=== PATIENT | male | born 1960 | race Caucasian/White ===

== ENCOUNTER → 2017-01-14 | Outpatient (CLI) | payer OTHER ==
[~2017-01-14] MED LIST: PRLSR20 PO
[2017-01-14 10:14] LABS: HEMATOCRIT 44.6 % (42-52); MEAN CELL VOLUME 82.4 fL (80-100); MEAN CORPUSCULAR HEMOGLOBIN 28.1 pg (25-34); MEAN CORPUSCULAR HGB CONC 34.1 g/dl (32-36); MEAN PLATELET VOLUME 11.1 fL (7.4-10.4); PLATELET COUNT 233 K/uL (130-400); RED BLOOD COUNT 5.41 M/uL (4.7-6.1); WHITE BLOOD COUNT 7.34 K/uL (4.8-10.8)
[2017-01-14 10:38] LABS: ALT/SGPT 28 U/L (12-78); AST/SGOT 17 U/L (15-37); BLOOD UREA NITROGEN 23 mg/dl (7-18); BUN/CREATININE RATIO 15.2 (10-20); CALCIUM 8.1 mg/dl (8.5-10.1); CARBON DIOXIDE 28 mmol/L (21-32); CHLORIDE 106 mmol/L (98-107); GLUCOSE 92 mg/dl (70-99); POTASSIUM 3.9 mmol/L (3.5-5.1); SODIUM 140 mmol/L (136-145)
[2017-01-14 10:44] LABS: ALB/GLOB RATIO 1.1 (0.9-2); ALKALINE PHOSPHATASE 82 U/L (45-117); CHOLESTEROL 158 mg/dl (0-200); CHOLESTEROL/HDL RATIO 3.6; HDL CHOLESTEROL 44 mg/dl; LDL CHOLESTEROL CALCULATED 93 mg/dl; PROSTATE SPECIFIC ANTIGEN 0.856 ng/ml (0.000-4.000); TRIGLYCERIDES 104 mg/dl (0-150); VERY LOW DENSITY LIPOPROT CALC 21 mg/dl
[2017-01-14 11:19] LABS: ESTIMATED AVERAGE GLUCOSE 114 mg/dl; HA1C FLAG Normal (Normal)
== END | disposition home or self-care (01) ==
LOC: C.LAB 09:17
PROVIDERS: ATTEND Physician Assistant Medical
DX: R35.1 Nocturia (principal); R53.83 Other fatigue; R79.9 Abnormal finding of blood chemistry, unspecified; Z11.59 Encounter for screening for other viral diseases

== ENCOUNTER → 2017-03-17 | Outpatient (CLI) | payer OTHER ==
[2017-03-17 13:13] LABS: URINE APPEARANCE CLEAR (CLEAR); URINE BILIRUBIN NEG (NEG); URINE COLOR YELLOW; URINE EPITHELIAL CELL AUTO 0-5 /lpf (0-5); URINE NITRITE NEG (NEG); URINE PH 5.5 (4.5-7.5); URINE SPECIFIC GRAVITY 1.025 (1.000-1.030); UROBILINOGEN NEG (NEG)
[2017-03-17 13:23] LABS: MANUAL MICROSCOPIC REQUIRED? NO; REVIEW REQ? NO
== END | disposition home or self-care (01) ==
LOC: C.LAB1850 10:47
PROVIDERS: ATTEND Internal Medicine Nephrology
DX: N28.1 Cyst of kidney, acquired (principal)

== ENCOUNTER → 2017-08-25 | Outpatient (CLI) | payer OTHER ==
[2017-08-25 10:14] LABS: BLOOD UREA NITROGEN 18 mg/dl (7-18); CALCIUM 8.5 mg/dl (8.5-10.1); CARBON DIOXIDE 28 mmol/L (21-32); CREATININE 1.35 mg/dl (0.60-1.40); GLUCOSE 101 mg/dl (70-99); POTASSIUM 4.2 mmol/L (3.5-5.1); SODIUM 138 mmol/L (136-145)
== END | disposition home or self-care (01) ==
LOC: C.LAB 08:46
PROVIDERS: ATTEND Internal Medicine Geriatric Medicine
DX: N18.3 Chronic kidney disease, stage 3 (moderate) (principal)

== ENCOUNTER 2019-02-28 00:06 | Inpatient (IN) ==
--- NOTE | 2019-02-28 00:34 | Emergency Department Note ---
Entered by Marycarmen Narvaez acting as a scribe for Deshawn Prado MD History of Present Illness General Chief complaint: Cardiac Assessment Stated complaint: UPPER BACK BETWEEN SHOULDERS W/ SOME CHEST PAINS Time Seen by Provider: 02/28/19 00:18 Source: patient History of Present Illness Provider complaint: chest pain Onset (ago): hour(s) 10 Location: chest Radiation: back Pain Consistency: + now resolved Maximum Pain Intensity: 4 Associated symptoms: no nausea/vomiting and no shortness of breath Treatments prior to arrival: aspirin The patient is a 58 year old male who presents to the Emergency Room with complaints of chest pain that started at 1400 today. The patient reports that he was washing his car outside and when he went back inside he started to develop chest pain. He reports that he felt like pressure. He notes that the pain radiated to his back. He states that his chest pressure lasted 1.5 hours and his back pain is still present. He notes that he took 3 baby Aspirin slept for an h our and felt better. He denies any shortness of breath, nausea, or vomiting. He denies any past medical history. He mentions that his father has a history of cardiac blockage at the age of 52. He denies any tobacco use, alcohol use, or drug use. The patient mentions that he did a stress test 6 months ago. Home Medications Home Medications Medication Instructions Recorded Confirmed Type Prilosec OTC 20 mg PO BID 08/05/18 02/28/19 History cholecalciferol (vitamin D3) 2,000 unit PO QAM 08/05/18 02/28/19 History [Vitamin D3] Allergies Allergy/AdvReac Type Severity Reaction Status Date / Time No Known Allergies Allergy Mild Verified 02/28/19 00:56 Past Med/Surg History Medical History Barretts esophagus GERD (gastroesophageal reflux disease) Surgical History History of colonoscopy History of esophagogastroduodenoscopy (EGD) History of tonsillectomy History of tooth extraction Family History Father Family history of diabetes mellitus Social History Preferred Language: Greenlandic Communication Ability: Effective 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 and A total of 10 systems reviewed and were otherwise negative Physical Exam Vital Signs Vital Signs - 24 hr 02/28/19 00:12 02/28/19 00:20 02/28/19 00:43 Temperature 36.8 C Temperature Source Oral Sepsis Recent Fever Within 48 Hours No Sepsis Action Taken by Nursing No Action Required Pulse Rate 100 H 88 Pulse Rate from SpO2 Sensor 88 Pulse Rhythm Regular Pulse Strength Normal Respiratory Rate 20 13 Respiratory Effort / Characteristics Non-Labored Spontaneous Respiratory Depth Normal Respiratory Pattern Regular Blood Pressure 163/102 H 141/101 H Blood Pressure Mean 122 114 Blood Pressure Position Sitting Pulse Oximetry 95 95 95 Oxygen Delivery Method Room Air Room Air Room Air 02/28/19 01:00 02/28/19 01:30 02/28/19 01:59 Temperature Temperature Source Sepsis Recent Fever Within 48 Hours Sepsis Action Taken by Nursing Pulse Rate 87 93 H 89 Pulse Rate from SpO2 Sensor 81 82 90 Pulse Rhythm Pulse Strength Respiratory Rate 12 11 L 17 Respiratory Effort / Characteristics Respiratory Depth Respiratory Pattern Blood Pressure 150/98 H 160/90 H 142/88 H Blood Pressure Mean 115 113 106 Blood Pressure Position Pulse Oximetry 95 97 96 Oxygen Delivery Method Room Air Room Air Room Air 02/28/19 02:00 Temperature Temperature Source Sepsis Recent Fever Within 48 Hours Sepsis Action Taken by Nursing Pulse Rate 87 Pulse Rate from SpO2 Sensor 86 Pulse Rhythm Pulse Strength Respiratory Rate 16 Respiratory Effort / Characteristics Respiratory Depth Respiratory Pattern Blood Pressure 136/87 Blood Pressure Mean 103 Blood Pressure Position Pulse Oximetry 97 Oxygen Delivery Method Room Air General: Non-ill appearing middle-age male in no acute distress. HEENT: Normal cephalic atraumatic. Pupils are equal round and reactive to light. Extraocular movements are intact. Oropharynx is pink with moist mucous membranes. No swelling of the mouth lips or tongue. Neck: Supple with a midline trachea. No meningeal signs or stiffness, no JVD or bruits. No Stridor. Chest: Clear to auscultation bilaterally. No wheezes or rhonchi. No increased work of breathing. Heart: regular rate and rhythm. Abdomen: Soft nontender, nondistended without rebound guarding or rigidity. Extremities: No cyanosis clubbing or edema. No calf tenderness or asymmetry Spine/Back. Non tender to palpation. No CVA tenderness Skin: Good turgor without rashes. Neurologic exam: Cranial nerves two through 12 are intact. Motor and sensation are intact and symmetrical throughout. Course 0019: The patient was evaluated in room A11B, and a complete history and physical examination were performed. 0105: I reevaluated the patient and he is resting comfortable. 0043: I reevaluated the patient and updated him on his results, he reports that he has no chest pain and mild back pain. He denies any medication of his back pain. I ordered a chest CT scan and repeat EKG. He agreed to try nitroglycerine. 0157: I reevaluated the patient and his back pain has decreased with Ni troglycerine. 0208: I discussed the patient's case with Dr. Orona [facility] Cardiac Intervention, he recommends that the patient be admitted. 0222: I reevaluated the patient and updated, he is resting comfortably. 0227: I reviewed the patient's case with Dr. Romero- [facility] Hospitalist. He will evaluate the patient for further management. Administered Medications Heparin Sodium/Dextrose (Heparin Sodium/Dextrose) 25,000 units in 500 mls @ 0.02 mls/hr IV .Q24H [facility]; Protocol Stop: 03/30/19 02:29 Last Admin: 02/28/19 02:38 Dose: 1,500 units/hr, 30 mls/hr Documented by: [id number] Cosigned by: [id number] Ioversol (Optiray 320 125ml) 119 ml IV ONCE PRN PRN Reason: Interaction Checking Stop: 03/04/19 01:51 Last Admin: 02/28/19 01:52 Dose: 119 ml Documented by: [id number] Discontinued Medications Heparin Sodium (Porcine) (Heparin Sodium (Porcine)) Confirm Administered Dose 5,000 units .ROUTE .STK-MED ONE Stop: 02/28/19 02:38 Last Admin: 02/28/19 02:38 Dose: 5,000 units Documented by: [id number] Cosigned by: [id number] Heparin Sodium/Dextrose () 1 ea IV NOW STA; Protocol Stop: 02/28/19 02:29 Last Admin: 02/28/19 02:40 Dose: Not Given Documented by: [id number] Nitroglycerin (Nitrostat) 0.4 mg SL NOW STA Stop: 02/28/19 01:36 Last Admin: 02/28/19 01:40 Dose: 0.4 mg Documented by: [id number] Nitroglycerin (Nitrostat) Confirm Administered Dose 0.4 mg .ROUTE .STK-MED ONE Stop: 02/28/19 01:40 Last Admin: 02/28/19 01:40 Dose: Not Given Documented by: [id number] Nitroglycerin (Nitro-Bid 2%) 1 inch EXT NOW ONE Stop: 02/28/19 02:11 Last Admin: 02/28/19 02:16 Dose: 1 inch Documented by: [id number] Medical Decision Making Differential Diagnosis Differential diagnoses include but are not limited to acute coronary syndrome, CHF, PE, pneumothorax, aneurysm, electrolyte abnormality, and metabolic abnormality. Medical Records Attestation: I reviewed the patient's medical records. Home Medications Current Medication List: was personally reviewed by me Laboratory Data Attestation: I reviewed the patient's lab results. Result diagrams: 02/28/19 00:32 02/28/19 00:32 Lab Results 02/28/19 02/28/19 Range/Units 00:32 00:32 WBC 12.90 H (4.8-10.8) K/uL RBC 5.30 (4.7-6.1) M/uL Hgb 15.4 (14.0-18.0) g/dL Hct 43.8 (42-52) % MCV 82.6 (80-100) fL MCH 29.1 (25-34) pg MCHC 35.2 (32-36) g/dL RDW Std Deviation 38.0 (36.4-46.3) fL RDW Coeff of [place] 12.6 (11.5-14.5) % Plt Count 269 (130-400) K/uL MPV 10.8 H (7.4-10.4) fL Immature Gran % (Auto) 0.2 % Neut % (Auto) 76.5 % Lymph % (Auto) 14.0 % [place] % (Auto) 8.9 % Eos % (Auto) 0.2 % Baso % (Auto) 0.2 % Immature Gran # (Auto) 0.03 H (0.00-0.02) K/uL Neut # (Auto) 9.88 H (1.4-6.5) K/uL Lymph # (Auto) 1.80 (1.2-3.4) K/uL [place] # (Auto) 1.15 H (0.11-0.59) K/uL Eos # (Auto) 0.02 (0-0.5) K/uL Baso # (Auto) 0.02 (0-0.2) K/uL Sodium 139 (136-145) mmol/L Potassium 3.6 (3.5-5.1) mmol/L Chloride 105 (98-107) mmol/L Carbon Dioxide 25 (21-32) mmol/L Anion Gap 9.0 (3-11) BUN 21 H (7-18) mg/dl Creatinine 1.35 (0.6-1.4) mg/dl Est Cr Clr Drug Dosing 71.9 ml/min Est GFR ( Amer) 67.1 Est GFR (Non-Af Amer) 57.9 BUN/Creatinine Ratio 15.9 (10-20) Glucose 121 H (70-99) mg/dl Calcium 8.5 (8.5-10.1) mg/dl Total Bilirubin 0.5 (0.2-1) mg/dl AST 73 H (15-37) U/L ALT 35 (12-78) U/L Alkaline Phosphatase 78 (45-117) U/L Troponin I 20.400 H* (0-0.045) ng/ml Total Protein 6.9 (6.4-8.2) gm/dl Albumin 3.6 (3.4-5.0) gm/dl Globulin 3.3 (2.5-4.0) gm/dl Albumin/Globulin Ratio 1.1 (0.9-2) Lipase 58 L (73-393) U/L Imaging Data Attestation: I personally reviewed and interpreted this imaging study as follows: My Impression: XR Chest No acute infiltrate or pneumothoraces. Radiologist's Impression: CTA CHEST: The thoracic aorta is normal in caliber without significant aneurysm or dissection. No periaortic abnormality identified. The aortic wall is unremarkable on precontrast imaging. No evidence for pulmonary embolism. The cardiac chambers are normal in size. No pericardial effusion. No significant mediastinal adenopathy. No acute osseous or significant overlying soft tissue abnormality identified. Radiologist: Jere Lind MD Study ready at 0211 and initial results transmitted at 0222. ECG Data Attestation: I personally reviewed and interpreted this ECG as follows: Indication: + chest pain Rate (beats per minute): 80 Rhythm: + normal sinus (with SA) ECG Findings: + Other (low voltage, no ischemic changes) Comparison ECG Date: no prior available Additional Comments: EKG 2 Normal sinus rhythm, rate of 89 bpm, no ischemic changes, no ectopy, no changes from EKG 1. Blood Pressure Blood Pressure Findings: Elevated blood pressure Blood Pressure Disposition: further management by hospitalist [facility] Narrative This patient comes in as described above. He had an episode of chest and back pain that occurred shortly after 2:00 today. It last about an hour and a half he still has some mild back discomfort but feels fine otherwise he looks well. His initial EKG is unremarkable is nonischemic appearing. He has no history of cardiac disease. he does have family history but no other significant risk factors. IV access was established and blood work was obtained. Chest x-ray, EKG, and cardiac enzymes were obtained and he was reassessed frequently. His troponin came back significantly elevated. His chest x-ray shows no acute abnormalities his EKG does not show any acute ischemic changes I did order repeat EKG he declines that he is have any chest pain he has some vague very mi ld mid back pain. He declined any medications for this. He did take an aspirin prior to arrival. He did agree to try nitroglycerin. I did order a CTA of his chest as well. I did discuss the case with the cardiac interventionalist, Dr. Gordon, and he does not feel he needs an acute cath tonight. The patient's pain did get better with one nitroglycerin and I ordered nitroglycerin paste. I do think the patient needs to be admitted for further treatment and evaluation. I did discuss the case with the hospitalist Dr. Romero. The patient CTA of his chest was unremarkable and did not show any evidence of dissection. Dr. Romero did recommend heparinization and I did order heparin bolus IV and rate as per the protocol. I discussed the risk and benefits with the patient. The patient will be admitted for further treatment and evaluation. Impression & Plan Non-ST elevated myocardial infarction (non-STEMI), Chest pain, Back pain, Elevated troponin Critical Care Time Critical Care Time: Yes Total Critical Care Time: 45 I have personally spent greater than 45 minutes of critical care time in the direct management of this patient. This includes bedside care, interpretation of diagnostic studies, and testing, discussion with consultants, patient, and family members, and other required patient management activities. This 45 minutes is in excess of all separately billable procedures. Discharge Plan Visit Data Chief Complaint: Cardiac Assessment Stated Complaint: UPPER BACK BETWEEN SHOULDERS W/ SOME CHEST PAINS ED Provider: Deshawn Prado Discharge Problem: Non-ST elevated myocardial infarction (non-STEMI), Chest pain, Back pain, Elev ated troponin Patient Disposition: Being Evaluated by Hospitalist Forms Stand Alone Forms: My [facility] Prescriptions Prescriptions: No Action Prilosec OTC 20 mg Tablet,Delayed Release (Dr/Ec) 20 mg PO BID RF: 0 cholecalciferol (vitamin D3) [Vitamin D3] 2,000 unit Tablet 2,000 unit PO QAM RF: 0 Referrals Referrals: Christina Lance PA-C [Primary Care Provider] - Discharge Problem: Chest pain Qualifiers: Chest pain type: unspecified Qualified Code(s): R07.9 - Chest pain, unspecified Back pain Qualifiers: Back pain location: back pain in unspecified location Chronicity: acute Back pain laterality: unspecified Qualified Code(s): M54.9 - Dorsalgia, unspecified The scribe's documentation has been prepared under my direction and personally reviewed by me in its entirety. I confirm that the note above accurately reflects all work, treatment, procedures, and medical decision making performed by me.
[2019-02-28 01:13] LABS: Basophils # (auto) 0.02 K/uL (0-0.2); Basophils % (auto) 0.2 %; Eosinophils # (auto) 0.02 K/uL (0-0.5); Eosinophils % (auto) 0.2 %; Hematocrit (blood only) 43.8 % (42-52); Hemoglobin 15.4 g/dL (14.0-18.0); Immature Granulocytes # (auto) 0.03 K/uL (0.00-0.02); Immature Granulocytes % (auto) 0.2 %; Mean Corpuscular Hemoglobin 29.1 pg (25-34); Mean Corpuscular Hgb Conc 35.2 g/dL (32-36); Mean Corpuscular Volume 82.6 fL (80-100); Mean Platelet Volume 10.8 fL (7.4-10.4); Monocytes # (auto) 1.15 K/uL (0.11-0.59); Monocytes % (auto) 8.9 %; Neutrophils # (auto) 9.88 K/uL (1.4-6.5); Neutrophils % (auto) 76.5 %; Platelet Count 269 K/uL (130-400); RDW Coefficient of Variation 12.6 % (11.5-14.5)
[2019-02-28 01:21] LABS: Albumin Level 3.6 gm/dl (3.4-5.0); BUN Creatinine Ratio 15.9 (10-20); Calcium 8.5 mg/dl (8.5-10.1); Creatinine Clr Calc Pharmacy 71.9 ml/min; Est GFR (African American) 67.1; Est GFR (Non-African American) 57.9; Potassium 3.6 mmol/L (3.5-5.1)
[2019-02-28 01:28] LABS: Albumin Globulin Ratio 1.1 (0.9-2); Bilirubin,Total 0.5 mg/dl (0.2-1); Globulin 3.3 gm/dl (2.5-4.0); Total Protein 6.9 gm/dl (6.4-8.2); Troponin I 20.4 ng/ml (0-0.045)
[2019-02-28] MEDS ORDERED: NITROGLYCERIN SL 0.4 MG/TAB TAB SL STA (01:35)
[2019-02-28] MEDS ORDERED: NITROGLYCERIN SL 0.4 MG/TAB TAB ONE (01:39)
[2019-02-28] MEDS ORDERED: OPTIRAY 320 125ml IV PRN (01:52)
[2019-02-28] MEDS ORDERED: NITROGLYCERIN 2% OINTMENT 30GM TUBE EXT ONE (02:10)
[2019-02-28] MEDS ORDERED: ACETAMINOPHEN 325 MG TAB PO PRN (02:35)
[2019-02-28] MEDS ORDERED: MoRPHine SULFATE 4 MG/ML 1 ML CARP\\VIAL IV PRN (02:35)
[2019-02-28] MEDS ORDERED: MoRPHine SULFATE 2 MG/ML CARP IV PRN (02:35)
[2019-02-28] MEDS ORDERED: HEPARIN SOD 5,000 UNIT/0.5 ML VIAL ONE (02:37)
[2019-02-28] MEDS: HEPARIN SODIUM/DEXTROSE 25,000 UNITS/500 ML BAG IV SCH ×2 (02:38→15:34)
[2019-02-28] MEDS ORDERED: ONDANSETRON INJ 2 MG/ML 2 ML VIAL IV PRN (03:21)
[2019-02-28] MEDS ORDERED: NITROGLYCERIN SL 0.4 MG/TAB TAB SL PRN (03:21)
--- NOTE | 2019-02-28 03:31 | History & Physical Report ---
Date of Service February 28, 2019 Assessment & Plan (1) Non-ST elevated myocardial infarction (non-STEMI): Admit PCU Heparin gtt Aspirin givin the ED cont 81 mg aspirin daily echo NPO Cardiology consult check lipids Prn NTG Pain control. (2) Nayak esophagus: Continue omeprazole. History of Present Illness 58 y/o male presented to the ED with pressure-like chest pain radiating to the back that started after he was washing his vehicle. He took 3 baby aspirin and took a nap for 1 hour. Upon waking, he had resolution of chest pain but still had back pain. His father had [place] at age 51 yr. He has no SOB, cough, F/C, diaphoresis, N/V/D. Primary Care Provider: Christina Lance PA-C Allergies Allergy/AdvReac Type Severity Reaction Status Date / Time No Known Allergies Allergy Mild Verified 02/28/19 00:56 Home Medications Home Medications Medication Instructions Recorded Confirmed Type Prilosec OTC 20 mg PO BID 08/05/18 02/28/19 History cholecalciferol (vitamin D3) 2,000 unit PO QAM 08/05/18 02/28/19 History [Vitamin D3] Past Med/Surg History Medical History Barretts esophagus GERD (gastroesophageal reflux disease) Surgical History History of colonoscopy History of esophagogastroduodenoscopy (EGD) History of tonsillectomy History of tooth extraction Family History Father Family history of diabetes mellitus Social History Preferred Language: Tristanian Communication Ability: Effective Veterinary Parasitologist Required: No Beliefs That Will Affect Care: None Current Living Situation: Significant Other Feels Safe at Home: Yes Smoking Status: Never smoker Second Hand Exposure: No ; Hx Alcohol Use: Yes Alcohol type: beer Hx Substance Use: No Review of Systems Review of Systems: Constitutional- no fever; no weight loss Eyes- no acute visual changes ENT- no sinus drainage; no pharyngitis Pulmonary- no cough, no wheezing, no shortness of breath Cardiac- in HPI GI- no nausea, no vomiting, no diarrhea, no melena, no hematochezia - no dysuria, no hematuria Musculoskeletal- no arthralgias, no myalgias Derm- no rashes, no new skin lesions, no changing skin lesions Hematologic- no unusual bruising, no unusual bleeding Lymphatics- no adenopathy Endocrine- no polyuria or polydipsia; no heat or cold intolerance Neuro- no headaches, no focal neurologic symptoms Psych- no anxiety, no depression Physical Exam Physical Exam: General- adult male, NAD Head- atraumatic Eyes- PERRL, EOMI, anicteric ENT- oropharynx clear Neck- supple, no JVD, no adenopathy, no thyromegaly. Lungs- CTA b/l no R/R/W Heart- regular rhythm; no murmur, no gallop, no rub appreciated Abdomen- normal bowel sounds, soft, nontender. 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 Skin- warm & dry Results & Data Vital Signs (Past 12 Hours) Vital Signs Temp Pulse Resp BP Pulse Ox 02/28/19 03:00 82 13 145/92 H 94 02/28/19 02:30 79 23 131/84 95 02/28/19 02:00 87 16 136/87 97 02/28/19 01:59 89 17 142/88 H 96 02/28/19 01:30 93 H 11 L 160/90 H 97 02/28/19 01:00 87 12 150/98 H 95 02/28/19 00:43 88 13 141/101 H 95 02/28/19 00:20 95 02/28/19 00:12 36.8 C 100 H 20 163/102 H 95 Laboratory Results Laboratory Results WBC 12.90 K/uL (4.8-10.8) H 02/28/19 00:32 RBC 5.30 M/uL (4.7-6.1) 02/28/19 00:32 Hgb 15.4 g/dL (14.0-18.0) 02/28/19 00:32 Hct 43.8 % (42-52) 02/28/19 00:32 MCV 82.6 fL (80-100) 02/28/19 00:32 MCH 29.1 pg (25-34) 02/28/19 00:32 MCHC 35.2 g/dL (32-36) 02/28/19 00:32 RDW Std Deviation 38.0 fL (36.4-46.3) 02/28/19 00:32 RDW Coeff of [place] 12.6 % (11.5-14.5) 02/28/19 00:32 Plt Count 269 K/uL (130-400) 02/28/19 00:32 MPV 10.8 fL (7.4-10.4) H 02/28/19 00:32 Immature Gran % (Auto) 0.2 % 02/28/19 00:32 Neut % (Auto) 76.5 % 02/28/19 00:32 Lymph % (Auto) 14.0 % 02/28/19 00:32 [place] % (Auto) 8.9 % 02/28/19 00:32 Eos % (Auto) 0.2 % 02/28/19 00:32 Baso % (Auto) 0.2 % 02/28/19 00:32 Immature Gran # (Auto) 0.03 K/uL (0.00-0.02) H 02/28/19 00:32 Neut # (Auto) 9.88 K/uL (1.4-6.5) H 02/28/19 00:32 Lymph # (Auto) 1.80 K/uL (1.2-3.4) 02/28/19 00:32 [place] # (Auto) 1.15 K/uL (0.11-0.59) H 02/28/19 00:32 Eos # (Auto) 0.02 K/uL (0-0.5) 02/28/19 00:32 Baso # (Auto) 0.02 K/uL (0-0.2) 02/28/19 00:32 Sodium 139 mmol/L (136-145) 02/28/19 00:32 Potassium 3.6 mmol/L (3.5-5.1) 02/28/19 00:32 Chloride 105 mmol/L (98-107) 02/28/19 00:32 Carbon Dioxide 25 mmol/L (21-32) 02/28/19 00:32 Anion Gap 9.0 (3-11) 02/28/19 00:32 BUN 21 mg/dl (7-18) H 02/28/19 00:32 Creatinine 1.35 mg/dl (0.6-1.4) 02/28/19 00:32 Est Cr Clr Drug Dosing 71.9 ml/min 02/28/19 00:32 Est GFR ( Amer) 67.1 02/28/19 00:32 Est GFR (Non-Af Amer) 57.9 02/28/19 00:32 BUN/Creatinine Ratio 15.9 (10-20) 02/28/19 00:32 Glucose 121 mg/dl (70-99) H 02/28/19 00:32 Calcium 8.5 mg/dl (8.5-10.1) 02/28/19 00:32 Total Bilirubin 0.5 mg/dl (0.2-1) 02/28/19 00:32 AST 73 U/L (15-37) H 02/28/19 00:32 ALT 35 U/L (12-78) 02/28/19 00:32 Alkaline Phosphatase 78 U/L (45-117) 02/28/19 00:32 Troponin I 20.400 ng/ml (0-0.045) H* 02/28/19 00:32 Total Protein 6.9 gm/dl (6.4-8.2) 02/28/19 00:32 Albumin 3.6 gm/dl (3.4-5.0) 02/28/19 00:32 Globulin 3.3 gm/dl (2.5-4.0) 02/28/19 00:32 Albumin/Globulin Ratio 1.1 (0.9-2) 02/28/19 00:32 Lipase 58 U/L (73-393) L 02/28/19 00:32 Code Status & VTE Plan VTE Prophylaxis Plan VTE Prophylaxis will be ordered: Yes PG Care Time/CCT Total # of Minutes Spent Total Time Spent: 65 Total Time Spent with Patient: Total time spent is greater than 50% in coordination of care (as documented) at patient's floor/unit and/or counseling patient:
[2019-02-28 03:33] LABS: Prothrombin Time 10.2 Seconds (9.0-12.0)
[2019-02-28 03:52] LABS: Partial Thromboplastin Ratio 0.9; Partial Thromboplastin Time 24.4 Seconds (21.0-31.0)
[2019-02-28] MEDS: LACTATED RINGER'S 1,000 ML IV SCH ×2 (04:00→15:35)
--- NOTE | 2019-02-28 05:34 | CT Scan Report ---
CT angio chest dissec wo/w con CLINICAL HISTORY: 58 years-old Male presenting with chest and back pain, clinical concern for dissect ion or aneurysm. TECHNIQUE: Multidetector CT angiography of the chest was performed before and after the administratio n of intravenous contrast. 3-D volumetric and/or maximum intensity projection (MIP) images were subse quently reconstructed for review. IV contrast: 119 mL of Optiray 320. One or more dose lowering techn iques were used consistent with the principles of ALARA (as low as reasonably achievable), including automatic exposure control, mA or kV adjustment to individual patient size, and/or use of iterative r econstruction. COMPARISON: None. CT DOSE (mGy.cm): The estimated cumulative dose is 2092.05 mGy.cm. FINDINGS: Senior Sales Executive topogram: Unremarkable. Vasculature: The study is adequate for assessment of the aorta. Precontrast imaging demonstrates no evidence of in tramural hematoma. Minimal atherosclerosis of the aorta. Postcontrast imaging demonstrates no evidenc e of dissection, penetrating ulcer, or aneurysm. Allowing for timing of the contrast bolus, no gross evidence of a filling defect within the pulmonary arteries to suggest embolus. Main pulmonary artery is not enlarged. No flattening of the interventricular septum. No intracardiac filling defect. No ref lux of contrast into the hepatic veins. Remaining chest: Soft tissues: Normal thyroid and thoracic inlet. No axillary, supraclavicular, mediastinal, or hilar lymphadenopathy. Normal heart size. No pericardial or pleural effusion. Hepatic steatosis. Lungs and airways: No pneumothorax. Central airways patent. Pulmonary arteries are not significantly enlarged relative to adjacent bronchi. No interlobular septal thickening. Minimal dependent changes l ikely atelectasis. No other focal nodule or infiltrate. Musculoskeletal: Normal osseous structures. IMPRESSION: 1. No evidence of acute aortic injury. No acute intrathoracic pathology. Electronically signed by: Henrry Mariee M.D. 02/28/2019 5:33 AM
--- NOTE | 2019-02-28 05:46 | XRay Report ---
XR chest 1V portable CLINICAL HISTORY: 58 years-old Male presenting with Chest Pain. TECHNIQUE: Portable upright AP view of the chest was obtained. COMPARISON: None. FINDINGS: Cardiac silhouette borderline enlarged. No focal opacity. No large effusion or pneumothorax. Osseous structures normal. Upper abdomen normal. IMPRESSION: 1. Borderline cardiomegaly. No other convincing evidence of acute cardiopulmonary disease. Electronically signed by: Henrry Mariee M.D. 02/28/2019 5:45 AM
[2019-02-28] MEDS: ASPIRIN 81 MG ECTAB PO SCH (08:25)
[2019-02-28] MEDS: PANTOprazole 40 MG TAB PO SCH ×2 (08:25→20:28)
[2019-02-28] MEDS: CHOLECALCIFEROL 1,000 UNITS TAB PO SCH (08:25)
[2019-02-28 08:59] LABS: Partial Thromboplastin Ratio 1.7
[2019-02-28 09:09] LABS: Troponin I 29.8 ng/ml (0-0.045)
[2019-02-28 09:14] LABS: Partial Thromboplastin Time 45.4 Seconds (21.0-31.0)
[2019-02-28] MEDS ORDERED: HEPARIN IV BOLUS 3,000 UNITS in SYRINGE 0 ML IV ONE (09:45)
[2019-02-28] MEDS ORDERED: METOPROLOL SUCC 25MG EXT REL TAB PO SCH (11:45)
[2019-02-28] MEDS: ATORVASTATIN 40 MG TAB PO SCH (12:13)
--- NOTE | 2019-02-28 12:54 | Hospitalist Progress Note ---
Date of Service February 28, 2019 Assessment & Plan (1) Non-ST elevated myocardial infarction (non-STEMI): 58 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 Non-ST elevated myocardial infarction - cardiology consulted, discussed case briefly this morning; patient currently pain free - Troponin 20.4 (00:32) 29.8 (8:22) - EKG: normal sinus rhythm - Started: Morphine (4 mg IV Q4 PRN), Nitro SL PRN, Heparin drip, ASA, Plavix, Atorvastatin 40 mg, Metoprolol Succinate 25 mg BID - ECHO ordered - continue to trend troponin - continue to access for pain - If patient develops pain consider EKG and troponin - Plan for cath 11 AM Elevated Cr. - patient states that they have a history of elevated Cr. - currently Cr. 1.35 - fluids in place after midnight 120 mL/hr LR prior to cath - continue to monitor Tachycardia - patient had one episode of wide complex tachycardia - Mg. and Phos checked and repleted - goal Mg. >2 K >4 - continue to monitor, evaluate and treat Nayak esophagus - continue Omeprazole DVT: heparin Code: full Diet: NPO after midnight (2) Chest pain: (3) Elevated troponin: (4) Nayak esophagus: Supervising Physician Co-Signing Physician Notes Patient seen and examined with PGY-1 Dr. Reddy. Agree with history, exam findings, assessment and plan of care as outlined. In brief, Mr. Lema is a 58 year old male with hx of Nayak's esophagus and family hx of CAD admitted with NSTEMI. Has not had chest pain since admission. BPs have been a bit elevated. 1. NSTEMI. trop20-->29-->21. No ST or T wave changes on EKG. Continues to be chest pain free. On heparin gtt. Continue ASA. Loaded with plavix. Started metoprolol and atrovastatin 40mg. Add lisinopril either tomorrow or at discharge. Lipid panel completed. A1C pending. Cardiac cath tomorrow. NPO at ID. LR overnight. Called his pharmacy and in the last 3 years, has not been prescribed a statin. Echo with preserved EF, normal wall motion, grade 1 diastolic dysfunction. Keep K near 4 and Mg near 2. 2. Cr 1.35. On review of records, Cr stable for the last 2 years. Monitor in the setting of dye load from CTA on admission and dye load from cath scheduled for tomorrow. Dispo: pending cath. Subjective Mark Lema was doing well this morning. He was not in any pain. He was washing his vehicle when he started to feel a light pressure in his chest, and a nervous feeling. He had seen Dr. Samayoa who is a neighbor 6 months prior for a stress test that was normal. 20 years ago he had seen Dr. Maciel who wanted to put him on a beta saray, and had him seen Dr. Barone at this time. Review of Systems Constitutional: no fever and no chills Respiratory: no cough denies shortness of breath Cardiovascular: no chest pain (currently no chest pain) and no palpitations (was having palpitations last night) Neurologic: no headache(s) Physical Exam Physical Exam: Constitutional: lying in bed, NAD Neuro: alert and oriented, goal directed CV: RRR, no m/r/g, no JVD, well perfused, cr<2 seconds Resp: CTAB Abd: soft, nTTP skin: warm, dry, intact Ext: calf nTTP, Kevon's negative Results & Data Vital Signs (Past 12 Hours) Vital Signs Temp Pulse Pulse Resp BP BP Pulse Ox 02/28/19 11:41 36.8 C 72 16 151/94 H 97 02/28/19 08:20 75 02/28/19 06:55 36.7 C 76 16 154/83 H 94 02/28/19 04:35 92 H 02/28/19 03:35 36.8 C 84 20 144/95 H 92 02/28/19 03:00 82 13 145/92 H 94 02/28/19 02:30 79 23 131/84 95 02/28/19 02:00 87 16 136/87 97 02/28/19 01:59 89 17 142/88 H 96 02/28/19 01:30 93 H 11 L 160/90 H 97 02/28/19 01:00 87 12 150/98 H 95 02/28/19 00:43 88 13 141/101 H 95 Resident Activity Tracking Resident Involvement: Resident Care Provided Care Provided: Adult Hospital Medicine (1) Chest pain Chest pain type: unspecified Qualified Code(s): R07.9 - Chest pain, unspecified
--- NOTE | 2019-02-28 13:33 | Cardiology Consultation ---
Date of Consultation February 28, 2019 Assessment & Plan (1) Chest pain: (2) Elevated troponin: (3) Nayak esophagus: History of Present Illness Attending Physician: Jamie Vicente DO Mark was in his normal state of health. He notes yesterday he had sudden onset of substernal chest pressure with radiation between his shoulder blades and lasted about 2 to 3 hours. He had took 3 81 mg aspirin tablets and when he awoke his discomfort had resolved. In the days prior to this event he denied any chest pain or chest pressure he has noted some increasing shortness of breath with activity. He denies any difficulty climbing stairs. 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 Next He has a bleeding bruising dark stools or black stools. He denies any presyncope or syncope he did have some lightheadedness with his chest tightness. He does note palpitations which he describes as an extra beat here there but no sudden onset sudden offset of his heart racing. He denies any upcoming surgery tooth extraction colonoscopy etc. There is a family history of premature arterial disease. His dad had leg bypass surgery in his early 50s and coronary bypass grafting in his early 60s. He was a significant smoker. The patient was exposed to significant secondhand smoke. The rest of a complete review of systems otherwise negative Allergies Allergy/AdvReac Type Severity Reaction Status Date / Time No Known Allergies Allergy Mild Verified 02/28/19 00:56 Home Medications Home Medications Medication Instructions Recorded Confirmed Type Prilosec OTC 20 mg PO BID 08/05/18 02/28/19 History cholecalciferol (vitamin D3) 2,000 unit PO QAM 08/05/18 02/28/19 History [Vitamin D3] Patient History Medical History Barretts esophagus GERD (gastroesophageal reflux disease) Surgical History History of colonoscopy History of esophagogastroduodenoscopy (EGD) History of tonsillectomy History of tooth extraction Family History Father Family history of diabetes mellitus Social History Preferred Language: Hong Konger Communication Ability: Effective 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 Beliefs That Will Affect Care: None Current Living Situation: Alone Feels Safe at Home: Yes Smoking Status: Unknown if ever smoked Hx Alcohol Use: No Hx Substance Use: No Results & Data Vital Signs (Past 12 Hours) Vital Signs Temp Pulse Pulse Resp BP BP Pulse Ox 02/28/19 11:41 36.8 C 72 16 151/94 H 97 02/28/19 08:20 75 02/28/19 06:55 36.7 C 76 16 154/83 H 94 02/28/19 04:35 92 H 02/28/19 03:35 36.8 C 84 20 144/95 H 92 02/28/19 03:00 82 13 145/92 H 94 02/28/19 02:30 79 23 131/84 95 02/28/19 02:00 87 16 136/87 97 02/28/19 01:59 89 17 142/88 H 96 02/28/19 01:30 93 H 11 L 160/90 H 97 he is awake alert oriented x3 he is in no acute distress he looks his stated age HEENT: 2+ carotid upstrokes no evidence of carotid bruits jugular venous pressure appeared normal his sclerae anicteric his hearing is normal Lungs: Clear to auscultation bilaterally no rales rhonchi or wheezing Heart: Regular rate and rhythm no appreciable murmurs rubs or gallops Abdomen: Soft nontender nondistended positive bowel sounds Extremity's no clubbing cyanosis or edema Psychiatric his affect appeared appropriate Neuro: Grossly nonfocal (1) Chest pain Chest pain type: unspecified Qualified Code(s): R07.9 - Chest pain, unspecified
[2019-02-28] MEDS ORDERED: CLOPIDOGREL BISULFATE 300 MG TAB PO STA (13:35)
[2019-02-28] MEDS ORDERED: SODIUM CHLORIDE 0.9% 1000ML 1,000 ML IV SCH (13:45)
[2019-02-28 15:53] LABS: Partial Thromboplastin Ratio 2.1
[2019-02-28 15:57] LABS: Partial Thromboplastin Time 58.1 Seconds (21.0-31.0)
[2019-02-28] MEDS ORDERED: Nursing to Pharmacy Communication ONE ×3 (16:24→17:21)
[2019-02-28 17:08] LABS: Magnesium 1.9 mg/dl (1.8-2.4)
[2019-02-28] MEDS ORDERED: POTASSIUM CHLORIDE 20 MEQ TABCR PO ONE (17:30)
[2019-02-28] MEDS: MAGNESIUM OXIDE 400 MG TAB PO SCH (17:46)
[2019-02-28] MEDS: METOPROLOL SUCC 25MG EXT REL TAB PO SCH (20:28)
[2019-03-01] MEDS: LACTATED RINGER'S 1,000 ML IV SCH ×3 (00:06→17:27)
[2019-03-01] MEDS: HEPARIN SODIUM/DEXTROSE 25,000 UNITS/500 ML BAG IV SCH (05:23)
[2019-03-01 06:45] LABS: Hematocrit (blood only) 44.2 % (42-52); Hemoglobin 15.2 g/dL (14.0-18.0); Mean Corpuscular Hemoglobin 29.1 pg (25-34); Mean Corpuscular Hgb Conc 34.4 g/dL (32-36); Mean Corpuscular Volume 84.7 fL (80-100); Mean Platelet Volume 10.6 fL (7.4-10.4); Platelet Count 216 K/uL (130-400); RDW Coefficient of Variation 12.9 % (11.5-14.5); RDW Standard Deviation 39.5 fL (36.4-46.3); Red Blood Count 5.22 M/uL (4.7-6.1); White Blood Count 8.38 K/uL (4.8-10.8)
[2019-03-01 07:08] LABS: Partial Thromboplastin Ratio 2.1
[2019-03-01 07:12] LABS: Partial Thromboplastin Time 56.4 Seconds (21.0-31.0)
[2019-03-01 07:13] LABS: BUN Creatinine Ratio 10.3 (10-20); Calcium 8.6 mg/dl (8.5-10.1); Est GFR (African American) 63.1; Est GFR (Non-African American) 54.4
[2019-03-01] MEDS: ASPIRIN 81 MG ECTAB PO SCH (07:45)
[2019-03-01] MEDS: ATORVASTATIN 40 MG TAB PO SCH (07:45)
[2019-03-01] MEDS: MAGNESIUM OXIDE 400 MG TAB PO SCH ×2 (07:45→20:12)
[2019-03-01] MEDS: METOPROLOL SUCC 25MG EXT REL TAB PO SCH ×2 (07:46→20:11)
[2019-03-01] MEDS: CLOPIDOGREL BISULFATE 75 MG TAB PO SCH (07:46)
[2019-03-01] MEDS: CHOLECALCIFEROL 1,000 UNITS TAB PO SCH (07:46)
[2019-03-01] MEDS: PANTOprazole 40 MG TAB PO SCH ×2 (07:46→20:11)
[2019-03-01] MEDS ORDERED: HEPARIN (PORCINE) 1000 UNIT/ML 10 ML (CATH LAB USE ONLY) ONE (09:42)
[2019-03-01] MEDS ORDERED: NiCARDipine HCL INJ 2.5 MG/ML 10 ML AMP ONE (09:42)
[2019-03-01] MEDS ORDERED: fentaNYL citrate 100 MCG/2 ML VIAL ONE (09:42)
[2019-03-01] MEDS ORDERED: NITROGLYCERIN/D5W 100MCG/ML 20ML SYR ONE (09:43)
[2019-03-01] MEDS ORDERED: MIDAZOLAM HCL 1 MG/ML 2ML VIAL ONE (09:43)
[2019-03-01] MEDS ORDERED: PRASUGREL HCL 5 MG TAB PO ONE (10:49)
--- NOTE | 2019-03-01 11:11 | Post Anesthesia Assessment ---
Date of Service March 01, 2019 Post Sedation Assessment Vital Signs Temp Pulse Pulse Resp BP Pulse Ox 03/01/19 11:05 67 18 149/103 H 94 03/01/19 09:20 64 03/01/19 07:37 97.9 F 66 18 116/69 96 03/01/19 03:28 97.7 F 72 18 138/92 96 03/01/19 00:17 71 02/28/19 23:42 98.1 F 61 16 143/90 H 97 02/28/19 19:24 98.6 F 70 18 147/93 H 96 02/28/19 16:25 77 21 155/89 H 96 02/28/19 15:50 98.1 F 72 18 138/84 95 02/28/19 11:41 98.2 F 72 16 151/94 H 97 Recovery Score Activity: Moves 4 extremities Respiration: Deep Breath/Cough Circulation: +/-20% PreAnes Value Consciousness: Fully Awake Oxygen Saturation: > 92% On Room Air Post Anesthesia Score: 10 Discharge Sedation Level of Care: Fast Track Phase II Post Sedation Plan On clinical assessment, the patient appears to have tolerated the sedation without complications. Patient is recovering as anticipated. Patient will continue to be monitored by nursing and may be discharged when sedation discharge criteria are met per below protocol. Upon Completions of procedure and additional 15 minutes continue every 5 minute vital signs and the P.A.R. score; then discharge to a Phase I or Fast Track to Phase II per the following guidelines: * Discharge Patient to appropriate Phase II area if PAR is 8 or greater or return to pre- procedure baseline. The post - procedure orders will be as directed. * If PAR score is less than 8 or not return to pre-procedure baseline then patient will follow Phase I monitoring till PAR is reached for Phase II. The Phase I may be done in procedure room or may call to secure a Phase I area. * If naloxone or flumazenil are used for reversal, hold in Phase I for continued monitoring from when last reversal dose was given for a minimum of 60 minutes or longer pending the nurse and/or physician discretion of patient condition before discharge to Phase II. Please call the Sedation Physician to re-evaluate and complete post-note for discharge to Phase II area. Do NOT discharge from procedure sedation or Phase 1 until post- sedation evaluation note is complete by procedure /sedation MD Sedation Discharge Instructions to be given to the patient at discharge to home.
--- NOTE | 2019-03-01 11:11 | Pre Anesthesia Assessment ---
Date of Service March 01, 2019 Pre Sedation Assessment Vital Signs Temp Pulse Pulse Resp BP Pulse Ox 03/01/19 09:20 64 03/01/19 07:37 97.9 F 66 18 116/69 96 03/01/19 03:28 97.7 F 72 18 138/92 96 03/01/19 00:17 71 02/28/19 23:42 98.1 F 61 16 143/90 H 97 02/28/19 19:24 98.6 F 70 18 147/93 H 96 02/28/19 16:25 77 21 155/89 H 96 02/28/19 15:50 98.1 F 72 18 138/84 95 02/28/19 11:41 98.2 F 72 16 151/94 H 97 Cardiovascular RRR, no murmur, no edema Respiratory normal respiratory effort, lungs clear to auscultation Pre-Sedation Airway Assessment Smoking Status: Unknown if ever smoked Hx Sleep Apnea: No Hx Difficult Intubation: No Short, Thick Neck: No Thyromental Distance: > or= 3.5 Finger Breadths Oral Cavity: + WNL Mallampati Class: III ASA: ASA3 NPO Status Date of Last Intake of Fluids: 03/01/19 Time of Last Intake of Fluids: 08:00 Last Oral Intake of Fluids Comment: sip with meds Date of Last Intake of Solid Food: 02/28/19 Time of Last Intake of Solid Foods: 21:00 Procedure Planning Contraindications for Sedation: none Current Medications Reviewed: Yes Notes The planned sedation has been discussed with the patient. Informed Consent was obtained. I have identified the patient, determined the appropriateness of sedation and have assessed the patient immediately prior to the procedure. All medicine(s) and interventions are by my order.
--- NOTE | 2019-03-01 11:25 | Cardiac Catheterization ---
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 Clinical evaluation leading to the procedure CAD Presenation: Non STEMI Anginal Classification: CCS IV Heart Failure: No Cardiogenic Shock within 24 Hours: No Cardiac Arrest within 24 Hours: No Imaging Studies Past 6 Months: Yes Stress Studies Past 6 Months: No Diagnostic Physicians Name: Segundo Virgen MD Status: Elective Closure Device Percutaneous Entry Location: Radial Closure Device: Radial Band Recommendations: PCI without planned CABG PCI Indication: PCI for high risk Non-NICHOLAS Lesion Segment Name: mid LAD Culprit Artery: Yes Stenosis Prior to Rx (%): 60 Chronic Total Occlusion: No IVUS: Yes FFR: No Pre-Procedure MARY Flow: 3 Previously Treated Lesion: No Lesion Complexity: Non-High/Non-C Lesion Length (mm): 15 Thrombus Present: Yes Bifurcation Lesion: No Guidewire Across Lesion: Stenosis Post-Procedure (%): 0 Post-Procedure MARY Flow: 3 Devices(s) Deployed: Yes Yes Intraprocedure Events Significant Disection: No Perforation: No Cardiac Cath Procedure Full Procedure Date March 01, 2019 Pre-Procedure Diagnosis Pre-Procedure Diagnosis: Non STEMI AUC Score AUC Score: 8 Post-Procedure Diagnosis Post-Procedure Diagnosis: Severe CAD Procedure(s) Performed Procedure(s) Performed: Coronary Angiography, Left Heart Cath, Drug Eluting Stent and IVUS Yarn Rewinder Segundo Virgen MD Pharmacy Sales Representative(s) Anny Estimated Blood Loss Estimated Blood Loss: 10 Medication(s) Medication(s): Fentanyl, Heparin, Nicardipine, Nitroglycerin and Versed Medication(s): Prasugrel Summary of Findings Indication: High risk NSTEMI Access: 6 Fr right radial artery Catheters: EBU 3.75 guide, [place], diagnostic JR4 Findings: LM -large caliber, no significant disease LAD -large caliber vessel, 50 to 60% hazy mid segment stenosis with ectatic segment after stenosis, distal luminal irregularity. Circumflex -moderate caliber, 30% ostial. Small OM1. Medium OM 2 with 30% ostial stenosis. RCA -dominant, very large caliber, 20% ostial, mid and distal luminal irregularities LVEDP -16 -- PCI -- Antithrombotic therapy: Heparin, Prasugrel Procedure: Left main cannulated with EBU 3.5 guide Inspectors And Regulatory Officers 50 wire passed across lesion into distal vessel IVUS used to assess extent of mid LAD diseaseeccentric~70% stenosis with apparent thrombus (MLA 5.6 mm). Inspectors And Regulatory Officers 50 wire removed from LAD and placed in the circumflex IVUS used to assess ostial circumflexnoted to have only mild disease Inspectors And Regulatory Officers 50 wire placed back down LAD Mid LAD stented with 4.5 x 18 mm Kremlin drug-eluting stent Stent postdilated with 5.0 NC to high atmospheres IC vasodilators administered for spasm IVUS showed well opposed stent with no apparent edge complications Post procedure MAYR 3 flow, stent well expanded with minimal residual stenosis and no apparent cardiac complications. Arterial Closure: TR band Summary: 1. Severe single vessel coronary artery disease -70% acute on chronic mid LAD stenosis with thrombus by IVUS 2. Normal intracardiac filling pressure 3. Successful PCI of mid LAD with single drug-eluting stent (4.5 x 18 mm Kremlin; postdilated with 5.0 NC). 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 Any exceptions are noted below.
[2019-03-01] MEDS ORDERED: SODIUM CHLORIDE 0.9% 1000ML 1,000 ML IV SCH ×2 (11:30)
--- NOTE | 2019-03-01 16:47 | Hospitalist Progress Note ---
Date of Service March 01, 2019 Assessment & Plan (1) Non-ST elevated myocardial infarction (non-STEMI): 58 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 Non-ST elevated myocardial infarction - cardiology consulted, discussed case briefly this morning; patient currently pain free - Troponin 20.4 on admission; 29.8 downtrending to 21.0 - EKG: normal sinus rhythm - Started: ASA, Plavix, Atorvastatin 40 mg, Metoprolol Succinate 25 mg BID, Lisinopril 10mg - ECHO: EF 60-65%, no wall motion abnormalities Elevated Cr. - patient states that they have a history of elevated Cr. - currently Cr. 1.35 - fluids in place after midnight 120 mL/hr LR prior to cath - continue to monitor Tachycardia - patient had one episode of wide complex tachycardia - Mg. and Phos checked and repleted - goal Mg. >2 K >4 Nayak esophagus - continue Omeprazole DVT: heparin Code: full Diet: Heart healthy (2) Chest pain: (3) Elevated troponin: (4) Nayak esophagus: Supervising Physician Co-Signing Physician Notes I personally examined the patient and verified all ferguson points of history and exam, discussed case, and agree with decision making with Dr Zaidi. feeling better post cath. no chest pain no sob. 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 eating habits vary but quite heavy in simple starches/carbs, proteins, fats. mostly bread/meat/potato, lots of restaurant food. "i tell them butter instead of gravy" vitals noted nad breathing unlabored no accessory muscles good effort no focal neuro deficits NSTEMI/CAD -stable now, post stenting -med management/secondary risk reduction -discussed lifestyle heavily/extensively today - he seems to have good insights into the need for change, offered a few strategies to help facilitate this Subjective Pt feels well this morning, feels like if he had had this feeling previously he would have just gone to work like normally. Diet is varied, but predominant in restaurant/take-out type foods; does get what sounds like 2-3 servings of vegetables daily but also factors in a large amount of breads and high fat containing foods. Review of Systems Constitutional: no fever, no chills and no weakness Respiratory: no cough and no wheezing Cardiovascular: no chest pain, no palpitations and no edema Gastrointestinal: no nausea, no vomiting and no change in bowel habits Physical Exam Constitutional: WD/WN, vitals as above Eyes: PERRL and EOM intact bilaterally Respiratory: normal respiratory effort, lungs clear to auscultation Cardiovascular: Rate/Rhythm: regular rate and regular rhythm Heart Sounds: no gallop, no murmur and no cardiac rub Gastrointestinal (Abdomen): normal bowel sounds, soft, nontender, no hepatosplenomegaly Results & Data Vital Signs (Past 12 Hours) Vital Signs Temp Pulse Pulse Resp BP BP Pulse Ox 03/01/19 16:11 64 18 139/88 95 03/01/19 15:44 36.4 C L 71 18 142/92 H 95 03/01/19 14:11 36.5 C 74 18 147/100 H 95 03/01/19 13:11 36.5 C 79 18 139/101 H 96 03/01/19 12:41 36.5 C 68 18 149/107 H 97 03/01/19 12:11 36.8 C 71 18 131/96 97 03/01/19 11:56 36.6 C 69 20 145/97 H 95 03/01/19 11:33 36.6 C 63 20 143/92 H 92 03/01/19 11:20 64 20 146/98 H 93 03/01/19 11:05 67 18 149/103 H 94 03/01/19 09:20 64 03/01/19 07:37 36.6 C 66 18 116/69 96 Laboratory Results 03/01/19 03/01/19 03/01/19 Range/Units 06:24 06:24 06:24 WBC 8.38 (4.8-10.8) K/uL RBC 5.22 (4.7-6.1) M/uL Hgb 15.2 (14.0-18.0) g/dL Hct 44.2 (42-52) % MCV 84.7 (80-100) fL MCH 29.1 (25-34) pg MCHC 34.4 (32-36) g/dL RDW Std Deviation 39.5 (36.4-46.3) fL RDW Coeff of [place] 12.9 (11.5-14.5) % Plt Count 216 (130-400) K/uL MPV 10.6 H (7.4-10.4) fL APTT 56.4 H* (21.0-31.0) Seconds PTT Ratio 2.1 Sodium 139 (136-145) mmol/L Potassium 4.0 (3.5-5.1) mmol/L Chloride 107 (98-107) mmol/L Carbon Dioxide 27 (21-32) mmol/L Anion Gap 5.0 (3-11) BUN 15 (7-18) mg/dl Creatinine 1.42 H (0.6-1.4) mg/dl Est Cr Clr Drug Dosing 74.0 ml/min Est GFR ( Amer) 63.1 Est GFR (Non-Af Amer) 54.4 BUN/Creatinine Ratio 10.3 (10-20) Glucose 116 H (70-99) mg/dl Calcium 8.6 (8.5-10.1) mg/dl Magnesium 2.0 (1.8-2.4) mg/dl 02/28/19 Range/Units 15:20 WBC (4.8-10.8) K/uL RBC (4.7-6.1) M/uL Hgb (14.0-18.0) g/dL Hct (42-52) % MCV (80-100) fL MCH (25-34) pg MCHC (32-36) g/dL RDW Std Deviation (36.4-46.3) fL RDW Coeff of [place] (11.5-14.5) % Plt Count (130-400) K/uL MPV (7.4-10.4) fL APTT (21.0-31.0) Seconds PTT Ratio Sodium (136-145) mmol/L Potassium (3.5-5.1) mmol/L Chloride (98-107) mmol/L Carbon Dioxide (21-32) mmol/L Anion Gap (3-11) BUN (7-18) mg/dl Creatinine (0.6-1.4) mg/dl Est Cr Clr Drug Dosing ml/min Est GFR ( Amer) Est GFR (Non-Af Amer) BUN/Creatinine Ratio (10-20) Glucose (70-99) mg/dl Calcium (8.5-10.1) mg/dl Magnesium 1.9 (1.8-2.4) mg/dl Medications Administered Current Inpatient Medications Acetaminophen (Tylenol) 650 mg PO Q4H PRN PRN Reason: mild pain or fever Stop: 03/30/19 02:34 Aspirin (Ecotrin Ectab) 81 mg PO [facility] Stop: 03/30/19 08:59 Last Admin: 03/01/19 07:45 Dose: 81 mg Documented by: Atorvastatin Calcium (Lipitor) 40 mg PO [facility] Stop: 03/30/19 11:44 Last Admin: 03/01/19 07:45 Dose: 40 mg Documented by: Clopidogrel Bisulfate (Plavix) 75 mg PO [facility] Stop: 03/31/19 08:59 Last Admin: 03/01/19 07:46 Dose: 75 mg Documented by: Lactated Ringer's (Lr) 1,000 mls @ 120 mls/hr IV .Q8H20M [facility] Stop: 03/31/19 00:00 Last Admin: 03/01/19 07:45 Dose: 120 mls/hr Documented by: Sodium Chloride (Nss 1000ml) 1,000 mls @ 100 mls/hr IV .Q10H [facility] Stop: 03/01/19 18:59 Last Admin: 03/01/19 11:33 Dose: 100 mls/hr Documented by: Lisinopril (Zestril) 10 mg PO [facility] Stop: 03/31/19 15:14 Magnesium Oxide (Mag-Ox) 400 mg PO BID [facility] Stop: 03/01/19 21:01 Last Admin: 03/01/19 07:45 Dose: 400 mg Documented by: Metoprolol Succinate (Toprol Xl) 25 mg PO BID [facility] Stop: 03/30/19 20:59 Last Admin: 03/01/19 07:46 Dose: 25 mg Documented by: Morphine Sulfate (Morphine Sulfate) 2 mg IV Q3H PRN PRN Reason: Moderate Pain Stop: 03/14/19 02:34 Morphine Sulfate (Morphine Sulfate) 4 mg IV Q4H PRN PRN Reason: Severe Pain Stop: 03/14/19 02:34 Nitroglycerin (Nitrostat) 0.4 mg SL PRN PRN PRN Reason: Chest Pain Stop: 03/30/19 03:20 Ondansetron HCl (Zofran) 4 mg IV Q6H PRN PRN Reason: nausea or vomiting Stop: 03/30/19 03:20 Pantoprazole Sodium (Protonix) 40 mg PO BID [facility] Stop: 03/30/19 08:59 Last Admin: 03/01/19 07:46 Dose: 40 mg Documented by: Vitamin D (Vitamin D3) 2,000 units PO QAM [facility] Stop: 03/30/19 08:59 Last Admin: 03/01/19 07:46 Dose: 2,000 units Documented by: Resident Activity Tracking Resident Involvement: Resident Care Provided Care Provided: Adult Hospital Medicine (1) Chest pain Chest pain type: unspecified Qualified Code(s): R07.9 - Chest pain, unspecified
[2019-03-01] MEDS: lisinopriL 10 MG TAB PO SCH (17:15)
--- NOTE | 2019-03-01 18:54 | Billing Data ---
Coding Level of Care Code 93393 Subseq Hosp Care Lvl 3
[2019-03-02] MEDS: LACTATED RINGER'S 1,000 ML IV SCH ×2 (00:35→08:29)
[2019-03-02 05:42] LABS: Estimated Average Glucose 114 mg/dl; Hemoglobin A1C 5.6 % (4.5-5.6)
[2019-03-02] MEDS: ASPIRIN 81 MG ECTAB PO SCH (08:18)
[2019-03-02] MEDS: ATORVASTATIN 40 MG TAB PO SCH (08:18)
[2019-03-02] MEDS: CLOPIDOGREL BISULFATE 75 MG TAB PO SCH (08:19)
[2019-03-02] MEDS: METOPROLOL SUCC 25MG EXT REL TAB PO SCH (08:20)
[2019-03-02] MEDS: PANTOprazole 40 MG TAB PO SCH (08:20)
[2019-03-02] MEDS: CHOLECALCIFEROL 1,000 UNITS TAB PO SCH (08:21)
[2019-03-02] MEDS: lisinopriL 10 MG TAB PO SCH (08:23)
[2019-03-02 09:22] LABS: BUN Creatinine Ratio 11.9 (10-20); Calcium 9.1 mg/dl (8.5-10.1); Creatinine Clr Calc Pharmacy 74.5 ml/min; Est GFR (African American) 63.6; Est GFR (Non-African American) 54.9; Potassium 3.8 mmol/L (3.5-5.1)
--- NOTE | 2019-03-02 13:21 | Med Student Discharge Summary ---
Date of Service March 02, 2019 Admission HPI Per Admitting Provider 58 y/o male presented to the ED with pressure-like chest pain radiating to the back that started after he was washing his vehicle. He took 3 baby aspirin and took a nap for 1 hour. Upon waking, he had resolution of chest pain but still had back pain. His father had MO at age 51 yr. He has no SOB, cough, F/C, diaphoresis, N/V/D. Primary Care Provider: Christina Lance PA-C Admission Exam (Per Admitting) Constitutional WD/WN, vitals as above Eyes PERRL and EOM intact bilaterally ENMT Mallampati Class: III Respiratory normal respiratory effort, lungs clear to auscultation Cardiovascular RRR, no murmur, no edema Rate/Rhythm: regular rate and regular rhythm Heart Sounds: no gallop, no murmur and no cardiac rub Gastrointestinal (Abdomen) normal bowel sounds, soft, nontender, no hepatosplenomegaly Discharge Data Consultations 02/28/19 02:10 ED Decision to Admit Stat 02/28/19 03:21 Consult Cardiology Routine 02/28/19 13:33 Consult Cardiac Catheterization Routine 03/01/19 11:27 Consult Cardiac Rehabilitation Routine Procedures Performed Operation Date: 03/01/19 11:00 Actual Procedures p Cath, Left with Cors and Vent - Elmo Virgen MD s Cineradiography w/Routine Exam - Elmo Virgen MD s Drug Eluting Stent SGl Vessel - Elmo Virgen MD Hospital Course (1) Non-ST elevated myocardial infarction (non-STEMI): 58 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 Non-ST elevated myocardial infarction - cardiology consulted: drug-eluding stent placed in mid-LAD (60% occlusion); all other vessels did not demonstrate stenosis - will have followup with Dr. Virgen & Cardiology clinic in coming weeks - Troponin 20.4 on admission; 29.8 downtrending to 21.0 - EKG: normal sinus rhythm - Continue: ASA81, Plavix 75 mg, Atorvastatin 40 mg, Metoprolol Succinate 25 mg BID, Lisinopril 10mg - ECHO: EF 60-65%, no wall motion abnormalities Elevated Cr. - patient states that they have a history of elevated Cr. - currently Cr. 1.35 - fluids in place after midnight 120 mL/hr LR prior to cath Tachycardia - patient had one episode of wide complex tachycardia - Mg. and Phos checked and repleted - goal Mg. 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 *If you need to change this appointment, call the office at [phone].) Elmo Virgen MD [Physician] - 03/09/19 10:00 am (Please, follow up at [facility] Cardiology Office with Erica Chowdary PA-C on FridayMarch 09 at 10:00 am. The office is located in [address] of [facility], next to this hospital. If you have any questions, call the office at [phone].) Diet: Heart Healthy Addtl Attending Provider Instructions: [facility] to [facility] ER on 02/28 with complaints of a pressure-like chest pain that radiated to the back that started after washing your vehicle. During your hospital stay, the following was identified/assessed as being responsible for those symptoms: Heart attack o The type of heart attack you had occurred due to one of your coronary arteries being blocked by a clot. This was precipitated by present plaque in this artery that has been building over time o Dr. Virgen (Cardiology) examined the heart and noted that one of the coronary arteries was 60% occluded. He decided to place a drug-eluding stent in that vessel to keep it patent and allow for ease of blood flow o An echocardiogram, which evaluates the structure of your heart and its ability to adequately pump blood, showed that your heart has normal wall motion and the ejection fraction is normal at 60-65% Coronary Artery Disease (CAD) o As mentioned above, plaque in one of the coronary arteries lead to the narrowing of that vessel o In order to prevent another cardiac event or worsening of any past problems, ongoing management is critical to prevent more plaque building, inflammation, and clot formation ? Lifestyle (exercise, diet) ? Medication Management The following outlines guidance, as discussed in the hospital, regarding personal management of your heart and bodily health moving forward: Lifestyle o Exercise ? 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 Keep this up! ? Perfect goal: 30 minutes per day of exercise o Diet ? Encouraged diversity of foods within the Mediterranean diet, emphasizing fruits, vegetables, lean protein, low carbs/refined grains, low dairy, low red meat, low sweets ? Continue to incorporate your family into your health plan as both diet and accountability partners ? 100% adherence is difficult; do your best to keep to this heart healthy diet Medications o There is an 80% secondary risk reduction when the medication management is done correctly and the following outlines the correct treatment: ? Metoprolol (25 mg by mouth twice a day) Beta saray medication that reduces the workload on the heart and keeps the blood pressure down Possible adverse drug reactions: low blood pressure, slow heart rate, fatigue, dizziness ? Lisinopril (10 mg by mouth every morning) Blood pressure medication that primarily works on sending blood to the kidney. Using this medication also minimizes the workload on the heart, allowing for adequate blood flow to the kidney for bodily function Possible adverse drug reactions: cough, low blood pressure, fatigue, dizziness we generally have people get labwork done (BMP) about a week after starting it so have Christina check this at your follow up next week. ? Aspirin (80 mg by mouth every morning) Inhibits platelet formation, diminishing the likelihood of clot formation in the coronary artery Possible adverse drug reactions: gastrointestinal upset, rash, gastrointestinal ulcers ? Plavix (75 mg by mouth every morning) Inhibits platelet formation, diminishing the likelihood of clot formation in the coronary artery Dual antiplatelet therapy (aspirin, Plavix) is recommended after the placement of a drug-eluding stent (length of time of therapy to be determined by Dr. Virgen) Possible adverse drug reactions: gastrointestinal bleeding or upset, rash, joint pain ? Atorvastatin (40 mg by mouth every morning) Lowers cholesterol and stabilizes existing plaques within the vessels Plaque stabilization is critical in keeping inflammation low within the vasculature, minimizing the risk of a clot forming and causing another cardiac event Possible adverse drug reactions: muscle pain, gastrointestinal upset, diarrhea ? Nitroglycerin (0.4 mg under the tongue as needed) Widens the coronary arteries, allowing for more blood flow to the heart and lowering the demand of oxygen needed by the heart to function Take this medication as needed when feeling chest pain Possible adverse drug reactions: low blood pressure, fatigue, dizziness, fainting The following is your plan for medical follow-up after your hospital stay: Cardiology o Appointment with Dr. Virgen will be taking place within the next two weeks o Routine follow-up (including lab work, medications, etc.) will be discussed with Dr. Virgen and the Cardiology Department moving forward Primary Care Physician o Appointment is scheduled to see OLGA LIDIA Marcelino ([facility]) on March 08, 2019 o Information regarding your hospitalization will be given to your physician for situational awareness o Continue discussion on lifestyle modifications and overall bodily health moving forward Pending Studies at Discharge: No Stand-Alone Forms: My [facility] [employer], Smoking Cessation Medications and DC Order Prescriptions: New atorvastatin 40 mg Tablet 40 mg PO QAM 30 Days Qty: 30 RF: 0 clopidogrel 75 mg Tablet 75 mg PO QAM 30 Days Qty: 30 RF: 0 aspirin [Ecotrin Low Strength] 81 mg Tablet,Delayed Release (Dr/Ec) 81 mg PO QAM 30 Days Qty: 30 RF: 0 lisinopril 10 mg Tablet 10 mg PO QAM 30 Days Qty: 30 RF: 0 metoprolol succinate 25 mg Tablet Extended Release 24 Hr 25 mg PO BID 30 Days Qty: 60 RF: 0 Continued Prilosec OTC 20 mg Tablet,Delayed Release (Dr/Ec) 20 mg PO BID RF: 0 cholecalciferol (vitamin D3) [Vitamin D3] 2,000 unit Tablet 2,000 unit PO QAM RF: 0 Discharge Orders: Discharge Order (Routine); Ordered 03/02/19 Ordered By: Brennan Harry/Other Patient Handouts: Foods Heart Healthy, Atorvastatin Calcium Oral tablet, Clopidogrel Bisulfate Oral tablet, Metoprolol Succinate Oral tablet extended-release, Lisinopril Oral tablet, Aspirin Oral tablet Admission Data Admit Date/Time: 02/28/19 02:35 Attending Provider: Jose Valladares Admit Provider: David Romero Primary Care Provider: Christina Lance Other Providers: David Romero ; Samuel Farley ; Elmo Virgen ; Jamie Vicente Other Interventions: Discharge Summary Assessment (RN) Last Done: 03/02/19 13:31 DC Date/Time DO NOT enter until pt leaves facility: 03/02/19 14:25
--- NOTE | 2019-03-03 16:25 | Billing Data ---
Coding Level of Care Code D/C Day Management >30 mins
== END 2019-03-02 14:25 | disposition home or self-care (01) | DRG 247 ==
LOC: ED 00:06 → 2S 02:35 → SUATTDRO 02:35 → 2S 03:09